=== PATIENT | male | born 1955 | race Caucasian/White ===

== ENCOUNTER → 2016-10-14 | Outpatient (CLI) | payer OTHER ==
[~2016-10-14] MED LIST: ALEVE220 MG PO; COMBIVENT RESPIM4 GM INH; LISINOPRIL-HYDR1 TA1 PO; MULTIPLE VITAMI1 T25 PO; NEIGHBOR PO; NORCO 5-325 TA1 EACH PO
== END | disposition home or self-care (01) ==
LOC: RAD 11:06
DX: J45.909 Unspecified asthma, uncomplicated (principal); I10 Essential (primary) hypertension; F17.200 Nicotine dependence, unspecified, uncomplicated

== ENCOUNTER → 2017-10-14 | Outpatient (CLI) | payer OTHER | END | disposition home or self-care (01) | LOC: LAB 15:17 | DX: J40 Bronchitis, not specified as acute or chronic (principal) ==

== ENCOUNTER → 2020-06-29 | Outpatient (CLI) | payer OTHER | END | disposition home or self-care (01) | LOC: CARD 13:45 | PROVIDERS: ATTEND Family Medicine | DX: I51.7 Cardiomegaly (principal); R01.1 Cardiac murmur, unspecified ==